=== PATIENT | male | born 1955 | race Caucasian/White ===

== ENCOUNTER 2022-07-08 15:00 | Outpatient (RCR) | payer MEDICARE, OTHER, SELFPAY | END 2022-07-08 17:44 | disposition home or self-care (01) | LOC: HO.PT 15:00 | PROVIDERS: PCP Internal Medicine; Visit Provider Physical Medicine & Rehabilitation | DX: N50.811 Right testicular pain (principal); M54.50 Low back pain, unspecified; M25.562 Pain in left knee | CPT/HCPCS: 97012; 97035; 97110; 97140; 97162 ==

== ENCOUNTER 2022-08-12 11:30 | Outpatient (RCR) | payer MEDICARE, OTHER, SELFPAY | END 2022-12-04 15:18 | disposition home or self-care (01) | LOC: HO.OT 11:30 | PROVIDERS: PCP Internal Medicine; Visit Provider Orthopaedic Surgery | DX: G56.23 Lesion of ulnar nerve, bilateral upper limbs (principal) | CPT/HCPCS: 97110; 97166; 97530 ==

== ENCOUNTER → 2023-09-04 09:42 | Outpatient (REF) | payer MEDICARE, OTHER, SELFPAY ==
--- NOTE | 2023-09-04 09:46 | CA_ITS ---
Transthoracic Echocardiogram Patient (Last, First, Middle): Tim Erickson, Gender: Male Date of : 1955 Age: 67 Procedure Date: 09/04/2023 Procedure Type: Transthoracic Echocardiogram Location: OP Height: 182.88 cm Weight: 156.49 kg BSA: 2.69 m2 Heart Rate: bpm BP: 138 / 80 mmHg Disability Liaison Officer: MIRIAN Referring MD: Joelle Hua ZONING ADMINISTRATOR Symptoms: SOB R06.02 Study Quality: Adequate w contrast ECG Rhythm: Sinus Conclusions: - The left ventricular systolic function is normal. The calculated ejection fraction is 60% by biplane method. - No obvious valvular pathology seen on this study. - There is mild dilatation of the sinuses of Valsalva measuring 4.10 cm and mild dilatation of the ascending aorta measuring 4.40 cm. Findings Procedure Information Contrast agent, definity, is being given per protocol without apparent complications. The quality of the study was technically difficult. The study quality is limited by patients body habitus. Left Ventricle Normal left ventricular cavity size. There is mildly increased left ventricular wall thickness. The left ventricular systolic function is normal. The calculated ejection fraction is 60% by biplane method. There is no evidence of regional wall motion abnormalities. Diastolic function is normal for age. Right Ventricle Normal right ventricular cavity size and systolic function. Atria Both atria are normal in size. Aortic Valve The aortic valve was not well visualized. There is no aortic valve stenosis. There is no aortic valve regurgitation. Mitral Valve The mitral valve appears normal. There is mild mitral annular calcification. There is no mitral valve regurgitation. There is no mitral valve stenosis. Pulmonic Valve The pulmonic valve is likely normal. Tricuspid Valve There is trace tricuspid valve regurgitation. There is no evidence of pulmonary hypertension. Great Vessels There is mild dilatation of the sinuses of Valsalva measuring 4.10 cm and mild dilatation of the ascending aorta measuring 4.40 cm. Venous The inferior vena cava was not well visualized. Pericardium/Pleural There is no evidence of pericardial effusion. Prior Study Comparison No prior study available for comparison. Recommendations, Care & Conclusions No obvious valvular pathology seen on this study. Measurements 2D Linear Measurements IVSd: 1.02 0.6-0.9/0.6-1.0 cm LVIDd: 5.36 3.9-5.3/4.2-5.9 cm LVIDd Index: 1.99 2.4-3.2/2.2-3.1 cm/m2 LVIDs: 3.58 2.0-3.6 cm LVPWd: 1.05 0.7-1.1 cm LA Diam: 3.70 2.7-3.8/3.0-4.0 cm LAIDs Index: 1.38 1.5-2.3 cm/m2 LV Mass: 266.43 67-162/88-224 g LV Mass Index: 99.04 43-95/49-115 g/m2 LVOT Diam: 2.70 3.0+(-)1.3 cm 2D Systolic Function EF 4C: 62.70 >55% EF 2C: 57.30 >55% EF BiP: 60.00 >55% Mitral Valve MV Pk E: 0.97 MV PK A: 0.84 MV Decel Time: 234.00 E/A: 1.20 E'Lateral: 7.18 E'Medial: 5.98 E/E' Med: 16.20 E/E' Lat: 13.50 PHT: 69.00 MVA PHT: 3.19 Decel Wilson: 4.14 Aortic Valve AoV Pk Aamir: 1.24 AoV Mn Aamir: 0.89 AoV VTI: 0.30 AoV Pk Grad: 6.00 Aov Mn Grad: 4.00 LUIS ENRIQUE Cont.VTI: 3.96 LVOT LVOT Pk Aamir: 0.84 LVOT Mn Aamir: 0.60 LVOT VTI: 0.20 LVOT Pk Grad: 3.00 LVOT Mn Grad: 2.00 LVOT Diam: 2.70 LVOT Area: 5.73 Diastolic Function MV Pk E: 0.97 MV Pk A: 0.84 E/A: 1.20 E'Medial: 5.98 E/E' Med: 16.20 E' Laterial: 7.18 E/E' Lat: 13.50 Right Ventricle TAPSE (mm): 22.00 TVS' Aamir: 13.50 Tricuspid Valve TR Pk Aamir: 1.64 TR Pk Grad: 11.00 RA Press: 3.00 RVSP: 14.00 Great Vessels Aorta Sinus of Valsalva: 4.10 2.0-3.5 cm Ao Asc: 4.40 2.1-3.4 cm Pulmonary Valve PV Pk Aamir: 0.72 Peak PV Grad: 2.00 Updated in Other Vendor System with Status of Final Yandel Umana MD electronically signed on 09/05/2023 1:51:22 PM with status of Final
== END ==
LOC: HO.CARD 09:42
PROVIDERS: PCP Internal Medicine; Visit Provider Nurse Practitioner
DX: R06.02 Shortness of breath (principal)
CPT/HCPCS: 93306; Q9957

== ENCOUNTER → 2023-09-04 09:46 | Outpatient (BNV) | payer MEDICARE, OTHER, SELFPAY | PROVIDERS: PCP Internal Medicine; Visit Provider Internal Medicine | DX: I34.81 Nonrheumatic mitral (valve) annulus calcification (principal); R06.02 Shortness of breath | CPT/HCPCS: 93306 ==